=== PATIENT | female | born 1975 | race Caucasian/White ===

== ENCOUNTER 2017-05-20 13:47 | Emergency (ER) | payer OTHER ==
[~2017-05-20] VITALS: Ht 160 cm; Wt 90.9 kg
[~2017-05-20 13:47] MED LIST: ALPR0.5T PO; ARMO250T4 PO; BACL20TA PO; CARI350T29 PO; ESOM20CA PO; HYDR-906 PO; LEVO50TA74 PO; MELO-109 PO; MELO7.5O PO; METO10TA96 PO; NAPR-260 PO; OXYC-279 PO; PANT40TA3 PO; SUMA50TA11 PO; ZOLP10TA PO
[2017-05-20] MEDS ORDERED: HALOPERIDOL 5 MG INJ IM STA (13:57)
[2017-05-20] MEDS ORDERED: LORAZEPAM 2 MG INJ IM STA (13:57)
[2017-05-20 14:04] VITALS: Ht 160 cm; Wt 90.9 kg
--- NOTE | 2017-05-20 14:05 | ERA ---
ER Documentation Chief Complaint Date/Time DATE: 05/20/17 TIME: 14:00 Chief Complaint Agitated behavior HPI 41-year-old female brought to the emergency department by her friend and porter luggage for agitated behavior. Patient is not able to provide any meaningful insight at this time she presents manic and psychotic. According to the care provider, patient was in her normal state of health until today which time her activity level became significantly more agitated than normal. There is no other significant inciting event. Patient has no significant insight at this time. ROS All systems reviewed and are negative except as per history of present illness. Medications Home Meds Active Scripts Meloxicam* (Meloxicam*) 7.5 Mg Tablet, 7.5 MG PO DAILY, #30 TAB Prov:ZACHARY PAGAN PA-C 07/30/16 Naproxen* (Naprosyn*) 500 Mg Tablet, 500 MG PO BID Y for PAIN AND/OR INFLAMMATION, #30 TAB Prov:ZACHARY PAGAN PA-C 07/30/16 Oxycodone HCl/Acetaminophen (Percocet 5-325 mg Tablet) 1 Each Tablet, 1 EACH PO QHS, #7 TAB Prov:ZACHARY PAGAN PA-C 07/30/16 Hydrocodone/Acetaminophen ([place] 5-325 Tablet) 1 Each Tablet, 1 TAB PO Q6H Y for PAIN, #15 TAB Prov:ZACHARY PAGAN PA-C 05/07/16 Reported Medications Armodafinil (Nuvigil) 250 Mg Tablet, 125 MG PO BID, TAB 07/22/15 Baclofen* (Baclofen*) 20 Mg Tablet, 20 MG PO TID, TAB 07/22/15 Meloxicam* (Meloxicam*) 7.5 Mg/5 Ml Oral.susp, 15 MG PO DAILY, ML 07/22/15 Pantoprazole* (Protonix*) 40 Mg Tablet.dr, 40 MG PO DAILY, #30 TAB 07/21/15 Metoclopramide Hcl* (Metoclopramide Hcl*) 10 Mg Tablet, 10 MG PO for NAUSEA AND OR VOMITING, TAB 07/21/15 Esomeprazole Mag Trihydrate (Nexium) 20 Mg Capsule.dr, 20 MG PO, #15 CAP 07/21/15 Alprazolam* (Xanax*) 0.5 Mg Tab, 0.5 MG PO Q6 Y for ANXIETY, #120 TAB 07/21/15 Zolpidem Tartrate* (Ambien*) 10 Mg Tablet, 10 MG PO HS Y for INSOMNIA, #30 TAB 07/21/15 Levothyroxine Sodium* (Levothyroxine Sodium*) 50 Mcg Tablet, 50 MCG PO AC BREAKFAST, #60 TAB 07/21/15 Sumatriptan Succinate* (Imitrex*) 50 Mg Tablet, 50 MG PO HENNA Y for HEADACHE, TAB May repeat after 2 hours if needed; MAX 200 mg/24 hours 07/21/15 Carisoprodol* (Carisoprodol*) 350 Mg Tablet, 350 MG PO QID for MUSCLE SPASMS, # 90 TAB 07/21/15 Allergies Allergies: Coded Allergies: Penicillins (Verified Allergy, Intermediate, Rash, 08/28/15) PMhx/Soc History of Surgery: No Anesthesia Reaction: No Hx Neurological Disorder: Yes (Bipolar ) Hx Respiratory Disorders: No Hx Cardiac Disorders: Yes (HTN) Hx Psychiatric Problems: Yes (Bipolar) Hx Miscellaneous Medical Probl: Yes (Bipolar disorder, hypothyroidism, chronic nec and back pain) Hx Alcohol Use: No Hx Substance Use: No Hx Tobacco Use: No FmHx Unknown Physical Exam Physical Exam GENERAL: The patient is well developed and appropriate for usual state of health in no apparent distress HEENT: Pupils equal, round, and reactive to light. EOMI. There is no scleral icterus. NECK: C-spine is soft and supple, there is no meningismus. There is no cervical lymphadenopathy. LUNGS: Clear to auscultation bilaterally. There are no rales, wheezes or rhonchi. HEART: Regular rate and rhythm, no murmurs, clicks, rubs or gallops. ABDOMEN: Soft, non-tender, non-distended. There are bowel sounds in all four quadrants. No rebound or guarding. EXTREMITIES: There is no peripheral cyanosis or edema. No focal swelling or erythema. NEURO: The patient moves all four extremities with 5/5 strength. Cranial nerves II - XII are intact. Normal gait. Alert and oriented SKIN: There is no apparent rash or petechiae. HEME/LYMPHATIC: There is no evidence of excessive bruising or lymphedema. PSYCHIATRIC: Patient is awake alert agitated and psychotic. She is hyperverbal with no significant insight or judgment. She is a confused tangential thought process. Procedures/MDM Patient was taken initially to a room where she was seen and examined. She was unable to be verbally deescalated and appear to be agitated to the point of being a danger to herself. She was placed in a 4 point Velcro restraints given Haldol and Ativan for de-escalation. She was then placed in observation status. Patient will be maintained under observation status with medical screening labs ordered and pending. Patient will be reevaluated after sedation, observation and consideration of psychiatric evaluation. Departure Diagnosis: Primary Impression: Psychosis Condition: Serious LITO TSAI May 20, 2017 14:05
[2017-05-20] MEDS ORDERED: ALPR0.5T6 PO (14:31)
[2017-05-20] MEDS ORDERED: ZOLP10TA PO (14:31)
[2017-05-20] MEDS ORDERED: ARMO50TA2 PO (14:32)
[2017-05-20] MEDS ORDERED: OLAN2.5T4 PO (14:32)
[2017-05-20 14:39] LABS: BASOPHIL # 0.1 10^3/ul (0.0-0.1); BASOPHILS % 1.1 % (0.0-2.0); EOSINOPHILS # 0.6 10^3/ul (0.0-0.5); EOSINOPHILS % 4.6 % (0.0-7.0); HEMATOCRIT 41.3 % (37.0-47.0); HEMOGLOBIN 13.8 g/dl (12.0-16.0); LYMPHOCYTES # 3.7 10^3/ul (0.8-2.9); MEAN CORPUSCULAR HEMOGLOBIN 28.9 pg (29.0-33.0); MEAN CORPUSCULAR HGB CONC 33.4 g/dl (32.0-37.0); MEAN CORPUSCULAR VOLUME 86.4 fl (82.0-101.0); MEAN PLATELET VOLUME 9.4 fl (7.4-10.4); MONOCYTE # 0.9 10^3/ul (0.3-0.9); MONOCYTES % 6.8 % (0.0-11.0); PLATELET COUNT 453 10^3/UL (140-415); RED BLOOD COUNT 4.78 10^6/ul (4.20-5.40); RED CELL DISTRIBUTION WIDTH 12.6 % (11.5-14.5); WHITE BLOOD COUNT 12.8 10^3/ul (4.8-10.8)
[2017-05-20 14:45] LABS: ALANINE AMINOTRANSFERASE 32 IU/L (13-69); ALBUMIN 4.7 g/dl (3.3-4.9); ALBUMIN/GLOBULIN RATIO 1.51; ALKALINE PHOSPHATASE 99 IU/L (42-121); ANION GAP 18 (8-16); ASPARTATE AMINO TRANSFERASE 30 IU/L (15-46); BLOOD UREA NITROGEN 11 mg/dl (7-20); CALCIUM 9.2 mg/dl (8.4-10.2); CARBON DIOXIDE 20 mmol/L (21-31); CHLORIDE 100 mmol/L (97-110); CREATININE 0.97 mg/dl (0.44-1.00); GLUCOSE 118 mg/dl (70-220); POTASSIUM 3.2 mmol/L (3.5-5.1); SODIUM 135 mmol/L (135-144); TOTAL PROTEIN 7.8 g/dl (6.1-8.1)
[2017-05-20 14:46] LABS: ADD UMIC NO; UR ASCORBIC ACID NEGATIVE (NEGATIVE); UR BILIRUBIN (Dip) NEGATIVE (NEGATIVE); UR BLOOD (Dip) NEGATIVE (NEGATIVE); UR CLARITY CLEAR (CLEAR); UR COLOR YELLOW (YELLOW); UR GLUCOSE (Dip) NEGATIVE (NEGATIVE); UR KETONES (Dip) TRACE mg/dL (NEGATIVE); UR LEUKOCYTE ESTERASE (Dip) NEGATIVE Leu/ul (NEGATIVE); UR NITRITE (Dip) NEGATIVE (NEGATIVE); UR SPECIFIC GRAVITY (Dip) 1.009 (1.003-1.030); UR TOTAL PROTEIN (Dip) NEGATIVE (NEGATIVE); UR UROBILINOGEN (Dip) NEGATIVE (NEGATIVE)
[2017-05-20 14:54] LABS: ACETAMINOPHEN < 10.0 ug/ml (10.0-30.0); SALICYLATE < 1.0 mg/dl (5.0-30.0)
[2017-05-20 14:57] LABS: BENZODIAZEPINES Positive (NEGATIVE)
[2017-05-20 15:06] LABS: BARBITURATES Negative (NEGATIVE); CANNABINOIDS Negative (NEGATIVE); COCAINE Negative (NEGATIVE); OPIATES Positive (NEGATIVE)
[2017-05-21] MEDS ORDERED: HALOPERIDOL 5 MG INJ IM ONE (04:30)
[2017-05-21] MEDS ORDERED: DIPHENHYDRAMINE 50 MG INJ IM ONE (04:30)
[2017-05-21] MEDS ORDERED: LORAZEPAM 1 MG TAB PO ONE (16:00)
[2017-05-21] MEDS ORDERED: AMLODIPINE 5 MG TAB PO ONE (19:00)
[2017-05-21 20:55] VITALS: PULSE 94; RESP 16; TEMP 98.6
[2017-05-21 21:28] VITALS: BP 140/89
== END 2017-05-21 21:28 ==
LOC: E/R 13:47
DX: F29 Unspecified psychosis not due to a substance or known physiological condition (principal); R40.2252 Coma scale, best verbal response, oriented, at arrival to emergency department; I10 Essential (primary) hypertension; E03.9 Hypothyroidism, unspecified; R40.2142 Coma scale, eyes open, spontaneous, at arrival to emergency department; R40.2362 Coma scale, best motor response, obeys commands, at arrival to emergency department
CPT/HCPCS: 36415; 80053; 80306; 80307; 81003; 84703; 85025; 96372; J1200; J1630; Z7502; Z7610